=== PATIENT | male | born 1950 | race Caucasian/White ===

== ENCOUNTER 2020-06-06 13:42 | Emergency (ER) | payer OTHER ==
[2020-06-06] MEDS ORDERED: NA CHLORIDE 0.9% 1,000 ML ONE (14:48)
[2020-06-06] MEDS ORDERED: ONDANSETRON 4 MG/2 ML VIAL ONE ×2 (14:48→16:31)
[2020-06-06] MEDS ORDERED: ALBUTEROL 2.5 MG/3 ML NEB SOL ONE (14:48)
--- NOTE | 2020-06-06 15:05 | RAD REPORT ---
EXAM DESCRIPTION: RAD - Chest Single View - 06/06/2020 2:59 pm CLINICAL HISTORY: Productive cough;SOB Chest pain. COMPARISON: No comparisons FINDINGS: Portable technique limits examination quality. The lungs are mildly emphysematous but grossly clear. The heart is normal in size. No displaced fract ures. IMPRESSION: No acute intrathoracic process suspected.
[2020-06-06 15:21] LABS: Basophils % 0.3 % (0-1.3); Lymphocytes % 25.8 % (15.3-44.8); MPV 8.4 fL (7.6-11.3); RBC Red Blood Cell Count 4.62 M/uL (4.33-5.43)
[2020-06-06 15:28] LABS: Protime INR 0.97
[2020-06-06 15:40] LABS: ALT/SGPT 45 U/L (12-78); AST/SGOT 33 U/L (15-37); Albumin 3.8 g/dL (3.4-5.0); Alkaline Phosphatase 78 U/L (45-117); BUN Blood Urea Nitrogen 16 mg/dL (7-18); Bicarbonate 29 mmol/L (21-32); Bilirubin Direct 0.1 mg/dL (0-0.2); Bilirubin Total 0.5 mg/dL (0.2-1.0); Glucose Level 95 mg/dL (74-106); Magnesium 2.3 mg/dL (1.8-2.4); NT PRO-BNP 143 pg/mL (<125); Potassium 4.2 mmol/L (3.5-5.1); Protein, Total 7.8 g/dL (6.4-8.2); Sodium Level 138 mmol/L (136-145); Troponin (Emerg Dept Use Only) < 0.02 ng/mL (0.0-0.045)
[2020-06-06] MEDS ORDERED: predniSONE 20 MG TAB ONE (16:12)
[2020-06-06 16:38] LABS: Blood Morphology Comment NOT SEEN (NOT SEEN); Platelet Estimate DECR; White Blood Cell Scan OK (OK)
--- NOTE | 2020-06-06 16:54 | ER ---
Nurse's Notes [facility] Name: David Lees Age: 69 yrs Sex: Male : 1950 Arrival Date: 06/06/2020 Time: 13:48 Bed 16 Private MD: Diagnosis: Cough;Shortness of breath;Diarrhea, unspecified Presentation: 06/06 13:50 Chief complaint: Patient states: Shortness of breath and fatigue that began 2-3 hours ss ago while at work. Pt reports he feels a little better now, but c/o some dizziness. Coronavirus screen: Client presents with at least one sign or symptom that may indicate coronavirus-19. Standard/surgical mask placed on the client. Provider contacted for isolation considerations. Ebola Screen: Patient denies exposure to infectious person. Patient denies travel to an Ebola-affected area in the 21 days before illness onset. Initial Sepsis Screen: Does the patient have a suspected source of infection? No. Patient's initial sepsis screen is negative. Initial Sepsis Screen: Does the patient meet any 2 criteria? No. Patient's initial sepsis screen is negative. Risk Assessment: Do you want to hurt yourself or someone else? Patient reports no desire to harm self or others. Note also reports diarrhea x 2-3 days. Onset of symptoms was June 06, 2020. 13:50 Method Of Arrival: EMS: [facility] 13:50 Acuity: DONG 3 ss Triage Assessment: 15:08 Respiratory: Onset: The symptoms/episode began/occurred today, the patient has mild zb shortness of breath. Historical: - Allergies: 13:57 Codeine; ss - PMHx: 13:57 Hypertension; High Cholesterol; GERD; Arthritis; ss - Immunization history:: Adult Immunizations up to date, Flu vaccine status is unknown. - Social history:: Smoking status: Patient reports the use of cigarette tobacco products, pt states he smokes a couple packs of cigarillos a day . Screenin:54 Abuse screen: Denies threats or abuse. Denies injuries from another. Nutritional zb screening: No deficits noted. Tuberculosis screening: No symptoms or risk factors identified. Fall Risk None identified. No fall in past 12 months (0 pts). No secondary diagnosis (0 pts). IV access (20 points). Ambulatory Aid- None/Bed Rest/Nurse Assist (0 pts). Gait- Normal/Bed Rest/Wheelchair (0 pts) Mental Status- Oriented to own ability (0 pts). Total Newman Fall Scale indicates No Risk (0-24 pts). Assessment: 14:51 General: Appears in no apparent distress. comfortable, slender, Behavior is calm, zb cooperative, Reports feeling ill for fatigue for. Cardiovascular: Reports shortness of breath. Cardiovascular: Capillary refill < 3 seconds in bilateral fingers. Respiratory: Airway is patent Respiratory effort is even, unlabored. GI: Reports diarrhea, nausea, vomiting. : No signs and/or symptoms were reported regarding the genitourinary system. Derm: No signs and/or symptoms reported regarding the dermatologic system. Skin is intact, is healthy with good turgor. Musculoskeletal: Circulation, motion, and sensation intact. Capillary refill < 3 seconds, in bilateral fingers. 14:51 Pain: Denies pain. zb 15:08 Cardiovascular: Rhythm is regular. zb 16:39 Reassessment: Patient appears in no apparent distress at this time. Patient and/or ph family updated on plan of care and expected duration. Pain level reassessed. Patient is alert, oriented x 3, equal unlabored respirations, skin warm/dry/pink. Pt resting comfortably, awaiting repeat cardiac enzymes, VSS. Vital Signs: 13:50 Pulse 73; Resp 15; Temp 99.1(TE); Pulse Ox 98% on R/A; Pain 0/10; ss 14:03 BP 146 / 107; Pulse 67; Resp 17; Temp 98.6; Pulse Ox 99% on R/A; Pain 4/10; ll1 15:30 BP 128 / 90; Pulse 73; Resp 16; Pulse Ox 97% on R/A; ph 16:40 BP 114 / 72; Pulse 69; Resp 18; Pulse Ox 97% on R/A; ph ED Course: 13:48 Patient arrived in ED. ss 13:56 Triage completed. ss 13:57 Jerson Evans NP is PHCP. pm1 13:57 Simone Hackett MD is Attending Physician. pm1 13:57 Arm band placed on left wrist. ss 14:31 Patti Seymour, JOSE ANGEL is Primary Nurse. zb 14:35 Inserted saline lock: 20 gauge in left antecubital area, using aseptic technique. Blood jp3 collected. 14:35 First set of blood cultures drawn by me. jp3 14:37 Flu and/or RSV swab sent to lab. Strep swab sent to lab. Pt swabbed for COVID-19. jp3 14:40 Bed in low position. Call light in reach. Side rails up X 1. Verbal reassurance given. jp3 slubber tender on. Pulse ox on. NIBP on. 14:42 EKG done, by ED staff, reviewed by Simone Hackett MD. jp3 14:50 Initial lab(s) drawn, by me, sent to lab. Second set of blood cultures drawn by me. jp3 Patient maintains SpO2 saturation greater than 95% on room air. 14:58 X-ray(s) taken. jp3 14:59 XRAY Chest (1 view) In Process Unspecified. EDMS 17:00 IV discontinued, intact, bleeding controlled, No redness/swelling at site. Pressure zb dressing applied. 19:14 No provider procedures requiring assistance completed. zb Administered Medications: 15:03 Drug: Albuterol 2.5 mg Route: Inhalation; zb 15:03 Drug: NS 0.9% 1000 ml Route: IV; Rate: 1000 ml; Site: left antecubital; zb 15:04 Drug: Zofran (Ondansetron) 4 mg Route: IVP; Site: left antecubital; zb 15:30 Follow up: Response: No adverse reaction zb 16:15 Drug: predniSONE 60 mg Route: PO; ph 16:30 Follow up: Response: No adverse reaction zb 16:29 Drug: Zofran (Ondansetron) 4 mg Route: IVP; Site: left antecubital; zb 16:40 Follow up: Response: No adverse reaction; Nausea is decreased zb 17:13 Drug: Rocephin 1 grams Route: IV; Rate: calculated rate; Site: left forearm; zb Outcome: 16:54 Discharge ordered by MD. pm1 17:29 Patient left the ED. zb 17:29 Discharged to home ambulatory. zb 17:29 Condition: good 17:29 Discharge instructions given to patient, family, friend, Instructed on discharge instructions, follow up and referral plans. medication usage, Demonstrated understanding of instructions, follow-up care, medications, Prescriptions given X 4. Signatures: Dispatcher [employer] EDMS Ragini Salinas RN RN ss Carolina Reeves RN RN ph Jerson Evans, COOK HELPER PASTRY COOK HELPER PASTRY pm1 Antonio Barry jp3 Zach Story RN RN ll1 Patti Seymour RN RN zb Corrections: (The following items were deleted from the chart) 15:03 14:51 General: Appears in no apparent distress. uncomfortable, slender, Behavior is zb calm, cooperative, Reports feeling ill for fatigue for zb
--- NOTE | 2020-06-06 16:54 | EDPHYS ---
Physician Documentation [facility] Name: David Lees Age: 69 yrs Sex: Male : 1950 Arrival Date: 06/06/2020 Time: 13:48 Bed 16 Private MD: ED Physician Simone Hackett HPI: 06/06 14:07 This 69 yrs old Male presents to ER via EMS with complaints of Shortness Of pm1 Breath. 14:07 The patient has shortness of breath with light activity. Onset: The symptoms/episode pm1 began/occurred 4 hour(s) ago. Duration: The symptoms are continuous, and are unchanged since they started. The patient's shortness of breath is aggravated by exertion. Associated signs and symptoms: Pertinent positives: productive cough, nausea, Diarrhea, Pertinent negatives: fever, vomiting. Severity of symptoms: in the emergency department the symptoms are unchanged. The patient has not recently seen a physician. Historical: - Allergies: 13:57 Codeine; ss - PMHx: 13:57 Hypertension; High Cholesterol; GERD; Arthritis; ss - Immunization history:: Adult Immunizations up to date, Flu vaccine status is unknown. - Social history:: Smoking status: Patient reports the use of cigarette tobacco products, pt states he smokes a couple packs of cigarillos a day . ROS: 14:07 Constitutional: Negative for fever, chills, and weight loss, Cardiovascular: Negative pm1 for chest pain, palpitations, and edema. 14:07 ENT: Negative for injury, pain, and discharge. 14:07 Back: Negative for injury and pain, MS/Extremity: Negative for injury and deformity, Skin: Negative for injury, rash, and discoloration. 14:07 Respiratory: Positive for cough, with white sputum, shortness of breath. 14:07 Abdomen/GI: Positive for nausea, diarrhea, for 3 days, 4-6 times watery diarrhea daily, Negative for abdominal pain, vomiting, constipation. 14:07 Neuro: Positive for dizziness, Negative for headache, numbness, tingling, weakness. Exam: 14:07 Constitutional: This is a well developed, well nourished patient who is awake, alert, pm1 and in no acute distress. Head/Face: Normocephalic, atraumatic. Eyes: Pupils equal round and reactive to light, extra-ocular motions intact. Lids and lashes normal. Conjunctiva and sclera are non-icteric and not injected. Cornea within normal limits. Periorbital areas with no swelling, redness, or edema. ENT: Nares patent. No nasal discharge, no septal abnormalities noted. Tympanic membranes are normal and external auditory canals are clear. Oropharynx with no redness, swelling, or masses, exudates, or evidence of obstruction, uvula midline. Mucous membranes moist. Chest/axilla: Normal chest wall appearance and motion. Nontender with no deformity. No lesions are appreciated. 14:07 Back: No spinal tenderness. No costovertebral tenderness. Full range of motion. Skin: Warm, dry with normal turgor. Normal color with no rashes, no lesions, and no evidence of cellulitis. MS/ Extremity: Pulses equal, no cyanosis. Neurovascular intact. Full, normal range of motion. 14:07 Cardiovascular: Rate: normal, Rhythm: regular, Pulses: no pulse deficits are appreciated, Edema: is not appreciated. 14:07 Respiratory: the patient does not display signs of respiratory distress, Respirations: normal, Breath sounds: wheezing: expiratory is heard diffusely. 14:07 Abdomen/GI: Inspection: abdomen appears normal, Palpation: abdomen is soft and non-tender, in all quadrants. 14:07 Neuro: Exam negative for acute changes, Orientation: is normal, Mentation: is normal, Motor: is normal, moves all fours. Vital Signs: 13:50 Pulse 73; Resp 15; Temp 99.1(TE); Pulse Ox 98% on R/A; Pain 0/10; ss 14:03 BP 146 / 107; Pulse 67; Resp 17; Temp 98.6; Pulse Ox 99% on R/A; Pain 4/10; ll1 15:30 BP 128 / 90; Pulse 73; Resp 16; Pulse Ox 97% on R/A; ph 16:40 BP 114 / 72; Pulse 69; Resp 18; Pulse Ox 97% on R/A; ph MDM: 13:59 Patient medically screened. pm1 14:29 Data reviewed: vital signs. Data interpreted: Pulse oximetry: on room air is 99 %. pm1 Interpretation: normal. 16:05 ED course: Patient reports resolution of shortness of breath and nausea with pm1 medications given in the ER. Patient with emphysematous changes present in chest x-ray. Suspect COPD . 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 06/06 14:06 Order name: Basic Metabolic Panel; Complete Time: 15:42 pm1 06/06 14:06 Order name: CBC with Diff; Complete Time: 16:51 pm1 06/06 14:06 Order name: LFT's; Complete Time: 15:42 pm1 06/06 14:06 Order name: Magnesium; Complete Time: 15:42 pm1 06/06 14:06 Order name: NT PRO-BNP; Complete Time: 15:42 pm1 06/06 14:06 Order name: PT-INR; Complete Time: 15:33 pm1 06/06 14:06 Order name: Troponin (emerg Dept Use Only); Complete Time: 15:42 pm1 06/06 14:06 Order name: COVID-19; Complete Time: 13:34 pm1 06/06 14:06 Order name: Flu; Complete Time: 16:04 pm1 06/06 14:06 Order name: Strep; Complete Time: 16:02 pm1 06/06 14:06 Order name: D-Dimer; Complete Time: 15:33 pm1 06/06 14:10 Order name: Procalcitonin; Complete Time: 16:02 pm1 06/06 14:10 Order name: Lactate; Complete Time: 16:02 pm1 06/06 14:10 Order name: Blood Culture Adult (2) pm1 06/06 14:06 Order name: XRAY Chest (1 view); Complete Time: 15:12 pm1 06/06 14:06 Order name: EKG; Complete Time: 14:07 pm1 06/06 14:06 Order name: Cardiac monitoring; Complete Time: 15:01 pm1 06/06 14:06 Order name: EKG - Nurse/Tech; Complete Time: 15:01 pm1 06/06 14:06 Order name: IV Saline Lock; Complete Time: 15:01 pm1 06/06 14:06 Order name: Labs collected and sent; Complete Time: 15:01 pm1 06/06 14:06 Order name: O2 Per Protocol; Complete Time: 15:01 pm1 06/06 15:59 Order name: Throat Culture; Complete Time: 13:34 EDMS 06/06 16:02 Order name: Troponin (emerg Dept Use Only); Complete Time: 16:51 pm1 06/06 16:38 Order name: CBC Smear Scan; Complete Time: 16:51 EDMS 06/06 14:06 Order name: O2 Sat Monitoring; Complete Time: 15:01 pm1 06/06 14:06 Order name: Droplet/Contact Precautions; Complete Time: 15:01 pm1 Administered Medications: 15:03 Drug: Albuterol 2.5 mg Route: Inhalation; zb 15:03 Drug: NS 0.9% 1000 ml Route: IV; Rate: 1000 ml; Site: left antecubital; zb 15:04 Drug: Zofran (Ondansetron) 4 mg Route: IVP; Site: left antecubital; zb 15:30 Follow up: Response: No adverse reaction zb 16:15 Drug: predniSONE 60 mg Route: PO; ph 16:30 Follow up: Response: No adverse reaction zb 16:29 Drug: Zofran (Ondansetron) 4 mg Route: IVP; Site: left antecubital; zb 16:40 Follow up: Response: No adverse reaction; Nausea is decreased zb 17:13 Drug: Rocephin 1 grams Route: IV; Rate: calculated rate; Site: left forearm; zb Disposition: 18:59 Co-signature as Attending Physician, Simone Hackett MD. rn Disposition: 06/06/20 16:54 Discharged to Home. Impression: Cough, Shortness of breath, Diarrhea, unspecified. - Condition is Stable. - Discharge Instructions: Food Choices to Help Relieve Diarrhea, Adult, Diarrhea, Adult, Shortness of Breath, Steps to Quit Smoking, Smoking Hazards, Cough, Adult, COVID-19. - Prescriptions for Zithromax Z- Itz 250 mg Oral Tablet - take 1 tablet by ORAL route as directed for 5 days Day 1 - take two (2) tablets one time. Day 2, 3, 4 , 5 take one (1) tablet once daily.; 6 tablet. Albuterol Sulfate 90 mcg/actuation - inhale 1-2 puff by INHALATION route every 4-6 hours; 1 Inhaler. Prednisone 20 mg Oral Tablet - take 1 tablet by ORAL route every 12 hours for 5 days; 10 tablet. Zofran 4 mg Oral Tablet - take 1 tablet by ORAL route every 8 hours As needed; 20 tablet. - Medication Reconciliation Form, Thank You Letter, Antibiotic Education, Prescription Opioid Use, Work release form form. - Follow up: Emergency Department; When: As needed; Reason: Worsening of condition. Follow up: Private Physician; When: 2 - 3 days; Reason: Recheck today's complaints, Continuance of care, Re-evaluation by your physician. - Problem is new. - Symptoms have improved. Addendum: 06/10/2020 13:34 Addendum: NOtified of positive COVID-19, 06/10/20 \T\ 1336. Feeling better. . rn Signatures: Dispatcher [employer] EDMS Simone Hackett MD MD rn Smirch, Shelby, RN RN Carolina Reeves RN RN ph Marinas, Patrick, TRISH CORE PLACER pm1 Patti Seymour RN RN zb Corrections: (The following items were deleted from the chart) 06/06 16:55 16:54 06/06/2020 16:54 Discharged to Home. Impression: Cough; Shortness of breath. pm1 Condition is Stable. Forms are Medication Reconciliation Form, Thank You Letter, Antibiotic Education, Prescription Opioid Use. Follow up: Emergency Department; When: As needed; Reason: Worsening of condition. Follow up: Private Physician; When: 2 - 3 days; Reason: Recheck today's complaints, Continuance of care, Re-evaluation by your physician. Problem is new. Symptoms have improved. pm1 17:29 16:55 06/06/2020 16:54 Discharged to Home. Impression: Cough; Shortness of breath; zb Diarrhea, unspecified. Condition is Stable. Discharge Instructions: Food Choices to Help Relieve Diarrhea, Adult, Diarrhea, Adult, Shortness of Breath, Steps to Quit Smoking, Smoking Hazards, Cough, Adult, COVID-19. Prescriptions for Zithromax Z-Itz 250 mg Oral Tablet - take 1 tablet by ORAL route as directed for 5 days Day 1 - take two (2) tablets one time. Day 2, 3, 4 , 5 take one (1) tablet once daily.; 6 tablet, Albuterol Sulfate 90 mcg/actuation - inhale 1-2 puff by INHALATION route every 4-6 hours; 1 Inhaler, Prednisone 20 mg Oral Tablet - take 1 tablet by ORAL route every 12 hours for 5 days; 10 tablet. and Forms are Medication Reconciliation Form, Thank You Letter, Antibiotic Education, Prescription Opioid Use. Follow up: Emergency Department; When: As needed; Reason: Worsening of condition. Follow up: Private Physician; When: 2 - 3 days; Reason: Recheck today's complaints, Continuance of care, Re-evaluation by your physician. Problem is new. Symptoms have improved. pm1
[2020-06-06] MEDS ORDERED: CEFTRIAXONE/SWI 1gm 1 GM/10 ML SYR ONE (17:22)
[2020-06-06 21:20] VITALS: TEMP 98.6
[2020-06-06 21:23] VITALS: O2SAT 97
[2020-06-06 21:25] VITALS: BP 114/72
--- NOTE | 2020-06-07 06:01 | EKG ---
Test Date: 2020-06-06 Test Time: 14:42:59 Glass Installer: SANTANA MEASUREMENT RESULTS: Intervals: Rate: 66 WV: 136 QRSD: 74 QT: 382 QTc: 400 Whipple: P: 65 WV: 136 QRS: 58 T: 82 INTERPRETIVE STATEMENTS: Normal sinus rhythm Nonspecific ST abnormality Abnormal ECG No previous ECG available for comparison Electronically Signed On 06-07-20 05:59:39 QUALITY REP by Albert New
== END 2020-06-06 17:29 | disposition home or self-care (01) ==
LOC: ER 13:42
DX: U07.1 COVID-19 (principal); R05 Cough; R19.7 Diarrhea, unspecified; I10 Essential (primary) hypertension; F17.210 Nicotine dependence, cigarettes, uncomplicated; Z88.5 Allergy status to narcotic agent
CPT/HCPCS: 93005; 87040 ×2; 87070; 85025; 80048; 36415; 83735; 85610; 85379; 80076; 87081; 83605; 84484 ×2; 84145; 83880; 87804 ×2; 71045; 99285; U0002; J0696; J7030; J2405 ×2; J7512